=== PATIENT | female | born 1995 | race Two or more races ===

== ENCOUNTER 2018-04-21 08:16 | Emergency (ER) | payer OTHER ==
[~2018-04-21] VITALS: Ht 160 cm; Wt 63.5 kg
[2018-04-21 08:16] VITALS: BP 128/64
[~2018-04-21 08:16] MED LIST: GABAPENTIN100 MG ORAL; Haloperidol 5mg/ml Inj IM ONE; LORazepam Inj 2mg/ml 1ml IM ONE; QUETIAPINE FUMA25 MG ORAL
[2018-04-21] MEDS ORDERED: BENADRYL25 MG ORAL (08:35)
[2018-04-21] MEDS ORDERED: IBUPROFEN600 MG ORAL (08:35)
[2018-04-21] MEDS ORDERED: TRAZODONE HCL50 MG ORAL ×2 (08:35→11:47)
[2018-04-21] MEDS ORDERED: QUETIAPINE FUM200 MG ORAL (08:35)
[2018-04-21] MEDS ORDERED: TraZODone HCl 25 mg tablet ORAL ONE (08:45)
[2018-04-21] MEDS ORDERED: QUEtiapine 200mg tab ORAL ONE (08:45)
[2018-04-21 09:25] LABS: BASOPHILS % (AUTO) 0.9 % (0.0-2.0); EOSINOPHILS % (AUTO) 0.1 % (0.0-3.0); HEMATOCRIT 36.3 % (37.0-47.0); HEMOGLOBIN 12.5 G/DL (12.0-16.0); LYMPHOCYTES % (AUTO) 14.5 % (20.0-45.0); MEAN CORPUSCULAR VOLUME 95 FL (80-99); MONOCYTES % (AUTO) 6.8 % (1.0-10.0); NEUTROPHILS % (AUTO) 77.7 % (45.0-75.0); PLATELET COUNT 227 K/UL (150-450); RED BLOOD COUNT 3.83 M/UL (4.20-5.40); WHITE BLOOD COUNT 9.3 K/UL (4.8-10.8)
[2018-04-21 09:32] LABS: ANION GAP 8 mmol/L (5-15); BLOOD UREA NITROGEN 9 mg/dL (7-18); CALCIUM 9.1 MG/DL (8.5-10.1); CARBON DIOXIDE 27 MMOL/L (21-32); CHLORIDE 105 MMOL/L (98-107); CREATININE 0.7 MG/DL (0.55-1.30); POTASSIUM 4.2 MMOL/L (3.5-5.1); SODIUM 140 MMOL/L (136-145)
[2018-04-21 09:42] LABS: ALANINE AMINOTRANSFERASE 26 U/L (12-78); ALBUMIN 4.3 G/DL (3.4-5.0); ALBUMIN/GLOBULIN RATIO 1.3 (1.0-2.7); ALKALINE PHOSPHATASE 88 U/L (46-116); ASPARTATE AMINO TRANSFERASE 20 U/L (15-37); BILIRUBIN,TOTAL 1.2 MG/DL (0.2-1.0)
[2018-04-21 09:45] LABS: BILIRUBIN,DIRECT 0.3 MG/DL (0.0-0.3)
--- NOTE | 2018-04-21 10:51 | Consultation ---
History of Present Illness General Date patient seen: Apr 21, 2018 Chief Complaint: Behavioral Complaint Present Illness HPI the pt is a 22 yo female with hx "schizophrenia" the pt was not suicidal or homicidal. the pt is not endorsing any psychotic sxs and stated that she needs to go to psych. I called the father who stated that he would come and pick her up. at the time of the discharge the pt was not at imminent dts/dto father's phone number: [phone] Allergies: Coded Allergies: No Known Allergies (Unverified , 04/21/18) Medication History Scheduled Diphenhydramine Hcl* (Benadryl*), 50 MG ORAL Q6H, (Reported) Quetiapine Fumarate (Seroquel Xr), 200 MG ORAL DAILY Quetiapine Fumarate* (Seroquel*), 200 MG ORAL DAILY, (Reported) Trazodone Hcl* (Desyrel*), 50 MG ORAL BEDTIME, (Reported) Trazodone Hcl* (Desyrel*), 50 MG ORAL BEDTIME Scheduled PRN Ibuprofen* (Motrin*), 600 MG ORAL Q6H PRN for For Pain, (Reported) Miscellaneous Medications Gabapentin* (Gabapentin*), MG ORAL, (Reported) Quetiapine Fumarate* (Seroquel*), MG ORAL, (Reported) Patient History Limited by: medical condition History Provided By: Patient, Medical Record, PMD Healthcare decision maker Resuscitation status Advanced Directive on File Review of Systems Psychiatric: Reports: prior hx, anxiety, depressed feelings, emotional problems Physical Exam General Appearance: no apparent distress, alert Neurologic: oriented x 3, responsive, depressed affect Last 24 Hour Vital Signs Date Time Temp Pulse Resp B/P (MAP) Pulse Ox O2 Delivery O2 Flow Rate FiO2 04/21/18 08:05 97.8 97 16 128/64 96 Room Air 97.9 Laboratory Tests Test 04/21/18 08:25 04/21/18 09:14 Urine Opiates Screen Negative (NEGATIVE) Urine Barbiturates Screen Negative (NEGATIVE) Phencyclidine (PCP) Screen Negative (NEGATIVE) Urine Amphetamines Screen Negative (NEGATIVE) Urine Benzodiazepines Screen Negative (NEGATIVE) Urine Cocaine Screen Negative (NEGATIVE) Urine Marijuana (THC) Screen Negative (NEGATIVE) White Blood Count 9.3 K/UL (4.8-10.8) Red Blood Count 3.83 M/UL (4.20-5.40) L Hemoglobin 12.5 G/DL (12.0-16.0) Hematocrit 36.3 % (37.0-47.0) L Mean Corpuscular Volume 95 FL (80-99) Mean Corpuscular Hemoglobin 32.7 PG (27.0-31.0) H Mean Corpuscular Hemoglobin Concent 34.5 G/DL (32.0-36.0) Red Cell Distribution Width 11.0 % (11.6-14.8) L Platelet Count 227 K/UL (150-450) Mean Platelet Volume 8.5 FL (6.5-10.1) Neutrophils (%) (Auto) 77.7 % (45.0-75.0) H Lymphocytes (%) (Auto) 14.5 % (20.0-45.0) L Monocytes (%) (Auto) 6.8 % (1.0-10.0) Eosinophils (%) (Auto) 0.1 % (0.0-3.0) Basophils (%) (Auto) 0.9 % (0.0-2.0) Sodium Level 140 MMOL/L (136-145) Potassium Level 4.2 MMOL/L (3.5-5.1) Chloride Level 105 MMOL/L (98-107) Carbon Dioxide Level 27 MMOL/L (21-32) Anion Gap 8 mmol/L (5-15) Blood Urea Nitrogen 9 mg/dL (7-18) Creatinine 0.7 MG/DL (0.55-1.30) Estimat Glomerular Filtration Rate > 60 mL/min (>60) Glucose Level 97 MG/DL (74-106) Calcium Level 9.1 MG/DL (8.5-10.1) Total Bilirubin 1.2 MG/DL (0.2-1.0) H Direct Bilirubin 0.3 MG/DL (0.0-0.3) Aspartate Amino Transf (AST/SGOT) 20 U/L (15-37) Alanine Aminotransferase (ALT/SGPT) 26 U/L (12-78) Alkaline Phosphatase 88 U/L (46-116) Total Protein 7.6 G/DL (6.4-8.2) Albumin 4.3 G/DL (3.4-5.0) Globulin 3.3 g/dL Albumin/Globulin Ratio 1.3 (1.0-2.7) Salicylates Level < 0.2 ug/mL (2.8-20) L Acetaminophen Level < 2 MCG/ML (10-30) L Serum Alcohol < 3 mg/dL Height (Feet): 5 Height (Inches): 3.00 Weight (Pounds): 140 Assessment/Plan Assessment/Plan the pts father was contacted who would come and pick her up the pt is not meeting the criteria for hold the pt is not at imminent dts/sto Nima Frazier MD Apr 21, 2018 10:51
--- NOTE | 2018-04-21 11:44 | Emergency Room Report ---
History of Present Illness General Chief Complaint: Behavioral Complaint Source: EMS Present Illness HPI This patient is here per firefighters c/o wanting to be restrained, given psych meds "I want to see the inside of a psych hospital." There is no trauma, no fever, no specific area of pain. Pt. says she was d/c yesterday. Later her dad came in and said she was hospitalized at [facility] and given a long acting antipsychotic April 02 but next psych appt. May 06. The patient is not a reliable historian but dad says no new issues since d/c. No meds at home. The patient received long acting Abilify. Allergies: Coded Allergies: No Known Allergies (Unverified , 04/21/18) Patient History Last Menstrual Period: unknown Now: No Nursing Documentation-[facility] History Of Psychiatric Problem: Yes - bipolar Review of Systems Constitutional: Denies: fever Eye: Denies: acuity changes Respiratory: Denies: cough, shortness of breath Cardiovascular: Denies: chest pain Gastrointestinal: Denies: nausea, vomiting Skin: Denies: rash Psychiatric: Reports: see HPI, anxiety, emotional problems Neurological: Denies: headache Physical Exam Vital Signs Date Time Temp Pulse Resp B/P (MAP) Pulse Ox O2 Delivery O2 Flow Rate FiO2 04/21/18 08:05 97.8 97 16 128/64 96 Room Air 97.9 General Appearance: well appearing, no apparent distress Head: normocephalic, atraumatic ENT: hearing grossly normal, normal voice Neck: full range of motion, supple Respiratory: no respiratory distress, speaking full sentences Musculoskeletal: no calf tenderness Neurologic: alert, normal gait Psychiatric: other - agitated but can talk with her coherently when I make her focus and behave. Skin: no rash Medical Decision Making Behavioral: Schizophrenia Reaction to Intervention: Improved Diagnostic Impression: Primary Impression: Schizophrenia ER Course calm after meds; psych MD saw patient in ED rec d/c Last Vital Signs Date Time Temp Pulse Resp B/P (MAP) Pulse Ox O2 Delivery O2 Flow Rate FiO2 04/21/18 08:05 97.8 97 16 128/64 96 Room Air 97.9 Scripts Trazodone Hcl* (DESYREL*) 50 Mg Tablet 50 MG ORAL BEDTIME, #30 TAB Prov: Charanjit Cardozo M.D. 04/21/18 Quetiapine Fumarate (SEROQUEL XR) 200 Mg Tab.er.24h 200 MG ORAL DAILY, #30 TAB 0 Refills Prov: Charanjit Cardozo M.D. 04/21/18 Referrals: [facility],REFERRING (PCP) Patient Instructions: Schizophrenia Charanjit Cardozo M.D. Apr 21, 2018 11:44
[2018-04-21] MEDS ORDERED: SEROQUEL XR200 MG ORAL (11:45)
[2018-04-21 12:19] VITALS: BP 117/71
== END 2018-04-21 12:19 | disposition home or self-care (01) ==
LOC: EDBD 08:16 → EMR 08:40
DX: F20.9 Schizophrenia, unspecified (principal); F31.9 Bipolar disorder, unspecified
CPT/HCPCS: 36415; 80053; 80307; 80329; 82248; 85025; 99284